=== PATIENT | female | born 1940 | race Caucasian/White ===

== ENCOUNTER → 2016-07-13 | Outpatient (REF) | payer MEDICARE ==
[2016-07-13 14:15] LABS: BILIRUBIN,URINE Negative (Negative); CLARITY,URINE Clear; COLOR,URINE Yellow; GLUCOSE, URINE (UA) Negative (Negative); LEUKOCYTE ESTERASE ,URINE Negative (Negative); UROBILINOGEN,URINE 0.2 mg/dL (0.2-1.0)
[2016-07-13 14:15] LABS: BASOPHILS % (AUTO) 0 % (0-2); EOSINOPHILS # (AUTO) 0.4 10^3uL; EOSINOPHILS % (AUTO) 5 % (0-4); LYMPHOCYTES # (AUTO) 1.1 X10^3; MEAN CORPUSCULAR HGB CONC 33.4 g/dL (31.0-37.0); MEAN CORPUSCULAR VOLUME 80 FL (80-100); MEAN PLATELET VOLUME 11.3 FL (6.0-9.5); MONOCYTES # (AUTO) 0.5 X10^3; MONOCYTES % (AUTO) 6 % (3-11); NEUTROPHILS # (AUTO) 5.5 X10^3; NEUTROPHILS % (AUTO) 73 % (51-67); PLATELET COUNT 204 10^3uL (150-450); WHITE BLOOD COUNT 7.48 10^3uL (4.0-11.0)
[2016-07-13 14:24] LABS: MEAN CORPUSCULAR HEMOGLOBIN 26.7 PG (26.0-34.0)
[2016-07-13 14:26] LABS: ALBUMIN 4.4 g/dL (3.4-5.0); ANION GAP 17.1 MEQ/L (3-15); CALCULATED IONIZED CALCIUM 4.3 mg/dL (3.8-4.6); TOTAL PROTEIN 7.7 g/dL (6.4-8.5)
[2016-07-13 14:28] LABS: URINE CENTRIFUGED VOLUME 12 mL
[2016-07-13 14:29] LABS: RBC,URINE 0-2 /HPF
== END ==
LOC: LAB 13:59
PROVIDERS: ATTEND Family Medicine
DX: E11.9 Type 2 diabetes mellitus without complications (principal); E11.42 Type 2 diabetes mellitus with diabetic polyneuropathy; E78.2 Mixed hyperlipidemia; I10 Essential (primary) hypertension; I27.2 Other secondary pulmonary hypertension; I07.1 Rheumatic tricuspid insufficiency; I48.2 Chronic atrial fibrillation
CPT/HCPCS: 80053; 80061; 80162; 81003; 81015; 83036; 84443; 85025; 85610

== ENCOUNTER → 2016-11-14 | Outpatient (REF) | payer MEDICARE ==
[2016-11-14 11:38] LABS: ANION GAP 17.5 MEQ/L (3-15)
== END ==
LOC: LAB 10:49
PROVIDERS: ATTEND Family Medicine
DX: I48.2 Chronic atrial fibrillation (principal); I10 Essential (primary) hypertension; K21.9 Gastro-esophageal reflux disease without esophagitis; E78.2 Mixed hyperlipidemia; D64.89 Other specified anemias; E11.9 Type 2 diabetes mellitus without complications; I27.2 Other secondary pulmonary hypertension
CPT/HCPCS: 80048; 80162; 83036; 85014; 85018